=== PATIENT | female | born 1985 | race Caucasian/White ===

== ENCOUNTER 2017-11-04 13:54 | Emergency (ER) | payer OTHER ==
[~2017-11-04] VITALS: Ht 160 cm; Wt 68.0 kg
--- NOTE | 2017-11-04 15:47 | ED GENERAL ADULT ---
History of Present Illness General Chief Complaint: Abdominal Pain/Flank Pain Stated Complaint: UPPER ABD RADIATING TO THE FLANK X 1.5 HRS Source: patient Exam Limitations: no limitations Vital Signs & Intake/Output Vital Signs & Intake/Output Vital Signs Date Time Temp Pulse Resp B/P B/P Pulse O2 O2 Flow FiO2 Mean Ox Delivery Rate 11/04 2005 98.7 78 18 115/77 98 Room Air 11/04 1944 Room Air 11/04 1621 98.4 75 16 114/75 100 Room Air 11/04 1411 97.8 90 20 123/67 98 Room Air ED Intake and Output 11/05 0000 11/04 1200 Intake Total Output Total Balance Patient 150 lb Weight Weight Reported by Patient Measurement Method Allergies Coded Allergies: NO KNOWN ALLERGIES (11/08/10) Triage Note: PT BIBA TO TRIAGE FOR C/O SUDDEN ONSET OF UPPER ABD PAIN RADIATING TO BACK. PT WAS AT WORK AND FELT THIS PAIN THEN BECAME DIZZY AND NAUSEOUS. C/O DIARRHEA THIS AM AFTER TAKING PRUNE JUICE. DENIES VOMITING. STATES PAIN STARTED 15 MINUTES AFTER EATING SOME SNACKS. HAD SIMILAR EPISODE 2-3 MONTHS AGO. Triage Nurses Notes Reviewed? yes Onset: Abrupt Duration: hour(s): Timing: single episode today : No Patient currently breastfeeds: No HPI: 15 min after eating lunch pt experienced extreem pain in her abdomin that radiates to her back. Pt states she became pale, shaky, and nausa. Pt denies fever or urinary symptoms, does admit to diarrhea. She says she had a similar episode approximately 2 months ago. Past History Travel History Traveled to [place] past 21 day No Medical History Any Pertinent Medical History? see below for history Psychiatric: depression Surgical History Surgical History: appendectomy Psychosocial History Who do you live with Patient and family Services at Home None What is your primary language Afghan Tobacco Use: Quit >30 days ago ETOH Use: occasional use Illicit Drug Use: denies illicit drug use Family History Hx Contributory? No Review of Systems Review of Systems Constitutional: Reports: see HPI. Denies: fever. EENTM: Reports: no symptoms. Denies: blurred vision. Respiratory: Reports: no symptoms. Cardiovascular: Reports: no symptoms. Denies: chest pain, edema. GI: Reports: see HPI. Denies: abdominal pain, diarrhea, nausea. Genitourinary: Reports: no symptoms. Denies: dysuria, frequency, hematuria, urgency. Musculoskeletal: Reports: no symptoms. Skin: Reports: no symptoms. Neurological/Psychological: Reports: no symptoms. Hematologic/Endocrine: Reports: no symptoms. Immunologic/Allergic: Reports: no symptoms. Physical Exam Physical Exam General Appearance: well developed/nourished, no apparent distress, alert, awake , anxious Head: atraumatic, normal appearance Eyes: Bilateral: normal appearance, PERRL, EOMI. Ears, Nose, Throat: normal ENT inspection, hearing grossly normal Neck: normal inspection, supple, full range of motion Respiratory: normal breath sounds, lungs clear Cardiovascular: regular rate/rhythm Peripheral Pulses: 4+ radial (R), 4+ radial (L) Gastrointestinal: normal bowel sounds (epigastric -right upper quad.), tenderness Back: normal inspection, normal range of motion Extremities: normal inspection, normal range of motion, no edema Neurologic/Psych: no motor/sensory deficits, awake, alert, oriented x 3 Skin: intact, normal color, warm/dry Core Measures ACS in differential dx? No CVA/TIA Diagnosis: No Sepsis Present: No Sepsis Focused Exam Completed? No Progress Differential Diagnoses I considered the following diagnoses in my evaluation of the patient: [ Cholelithiasis, cholecystitis, peptic ulcer disease, gastritis] Plan of Care: Orders Procedure Date/time Status Add-on Test (ER Only) 11/04 1711 Active LYME TITRE 11/04 1548 Active ANAPLASMA PHAGOCYTOPHILUM DNA 11/04 1548 Active URINE 11/04 1500 Complete URINALYSIS 11/04 1500 Complete LIPASE 11/04 1500 Complete COMPREHENSIVE METABOLIC PANEL 11/04 1500 Complete CBC WITHOUT DIFFERENTIAL 11/04 1500 Complete Laboratory Tests 11/04/17 1622: Urine Color YEL, Urine Clarity HAZY H, Urine pH 8.0, Ur Specific [place] 1.015, Urine Protein NEG, Urine Ketones NEG, Urine Nitrite NEG, Urine Bilirubin NEG, Urine Urobilinogen 0.2, Ur Leukocyte Esterase LARGE H, Ur Microscopic SEDIMENT EXAMINED, Urine RBC FEW H, Urine WBC 5-10 H, Ur Epithelial Cells MOD H, Urine Bacteria MANY H, Urine Hemoglobin MOD H, Urine Glucose NEG, Urine Test NEGATIVE 11/04/17 1548: Lyme Disease Antibody Pending 11/04/17 1548: Anion Gap 14, Estimated GFR > 60, BUN/Creatinine Ratio 14.4, Glucose 109 H, Calcium 10.2, Total Bilirubin 0.8, AST 303 H, ALT 149 H, Alkaline Phosphatase 77, Total Protein 8.1, Albumin 4.7, Globulin 3.4, Albumin/Globulin Ratio 1.4, Lipase 118, CBC w Diff NO MAN DIFF REQ, RBC 4.63, MCV 90.1, MCH 30.4, MCHC 33.7, RDW 13.0, MPV 8.2, Gran % 82.9 H, Lymphocytes % 8.9 L, Monocytes % 6.8, Eosinophils % 0.8, Basophils % 0.6, Absolute Granulocytes 10.7 H, Absolute Lymphocytes 1.1 L, Absolute Monocytes 0.9 H, Absolute Eosinophils 0.1, Absolute Basophils 0.1, A.phagocytophil DNA PCR Pending Initial ED EKG: none Departure Departure Disposition: STILL A PATIENT Condition: Stable Clinical Impression Primary Impression: Cholelithiasis Referrals: Swift Santy KENDRICK (PCP/Family) Departure Forms: Customer Survey General Discharge Information Comments Ultrasound results shown below- PATIENT: NOÉ LYONS PRESENT AGE: 32 PATIENT ACCOUNT NO: [id number] : 86 LOCATION: [facility] ORDERING PHYSICIAN: Levar Escamilla DO SERVICE DATE: 11/04/17 EXAM TYPE: US - US-LIMITED ABDOMEN US ABDOMEN LIMITED CLINICAL INFORMATION: Right upper quadrant pain. Rule out cholecystitis. COMPARISON: Abdominal CT 02/10/2008. TECHNIQUE: Real-time imaging of the right upper quadrant abdominal viscera. FINDINGS: PANCREAS: Normal. LIVER: Normal. The liver demonstrates normal size, contour and echogenicity. No focal lesion or intrahepatic biliary duct dilatation. GALLBLADDER: The gallbladder is partially contracted. Multiple gallstones, the largest measuring 0.6 x 0.3 x 0.2 cm. Collateral thickness is not accurately measured given that the gallbladder is contracted. No definite pericholecystic fluid. COMMON BILE DUCT: Normal in caliber measuring 0.3 cm in diameter. RIGHT KIDNEY: Normal. No hydronephrosis. No renal calculi or focal parenchymal lesions. The kidney measures 10.1 cm in maximum dimension. FREE FLUID: None. IMPRESSION: Cholelithiasis. Limited assessment for acute cholecystitis as the patient was not NPO for this exam and the gallbladder is partially contracted. If there is high clinical suspicion for acute cholecystitis, a HIDA scan can be obtained. DICTATED BY: Levar Platt MD DATE/TIME DICTATED:11/04/171742 [employer]:BRYCE DATE/TIME TRANSCRIBED:11/04/171742 CONFIDENTIAL, DO NOT COPY WITHOUT APPROPRIATE AUTHORIZATION. <Electronically signed in Other Vendor System> SIGNED BY: Levar Platt MD 11/04/171749 The patient was reevaluated. Her abdominal pain resolved. She had no fever. No abdominal tenderness on reevaluation. I discussed the case with Dr. Salazar who is in agreement with the plan of care. The patient tolerated a meal in the emergency department without any further episode of nausea. I discussed with her that should she develop pain, vomiting or fever she would need to return to the emergency department. Shared decision-making was utilized in her care. They will follow up with surgery in the next 2 weeks or return to the emergency department should symptoms recur. Critical Care Note Critical Care Note Critical Care Time: non-applicable
[2017-11-04 16:08] LABS: ABSOLUTE BASOPHIL COUNT 0.1 /CUMM (0.0-0.2); ABSOLUTE EOSINOPHIL COUNT 0.1 /CUMM (0.0-0.7); ABSOLUTE GRANULOCYTE CT 10.7 /CUMM (1.4-6.5); ABSOLUTE LYMPH COUNT 1.1 /CUMM (1.2-3.4); ABSOLUTE MONOCYTE COUNT 0.9 /CUMM (0.10-0.60); BASOPHIL % 0.6 % (0.0-2.0); EOSINOPHIL % 0.8 % (0-5); GRANULOCYTE % 82.9 % (42.2-75.2); HEMATOCRIT 41.7 % (37-47); MEAN CORPUSCULAR HGB 30.4 PG (27.0-31.0); MEAN CORPUSCULAR HGB CONC 33.7 G/DL (33.0-37.0); MEAN CORPUSCULAR VOLUME 90.1 FL (81.0-99.0); MEAN PLATELET VOLUME 8.2 FL (7.4-10.4); PLATELET COUNT 302 /CUMM (130-400); RED BLOOD CELL CT 4.63 /CUMM (4.20-5.40); WHITE BLOOD CELL COUNT 12.9 /CUMM (4.8-10.8)
--- NOTE | 2017-11-04 17:50 | ULTRASOUND REPORT ---
US ABDOMEN LIMITED CLINICAL INFORMATION: Right upper quadrant pain. Rule out cholecystitis. COMPARISON: Abdominal CT 02/10/2008. TECHNIQUE: Real-time imaging of the right upper quadrant abdominal viscera. FINDINGS: PANCREAS: Normal. LIVER: Normal. The liver demonstrates normal size, contour and echogenicity. No focal lesion or intrahepatic biliary duct dilatation. GALLBLADDER: The gallbladder is partially contracted. Multiple gallstones, the largest measuring 0.6 x 0.3 x 0.2 cm. Collateral thickness is not accurately measured given that the gallbladder is contracted. No definite pericholecystic fluid. COMMON BILE DUCT: Normal in caliber measuring 0.3 cm in diameter. RIGHT KIDNEY: Normal. No hydronephrosis. No renal calculi or focal parenchymal lesions. The kidney measures 10.1 cm in maximum dimension. FREE FLUID: None. IMPRESSION: Cholelithiasis. Limited assessment for acute cholecystitis as the patient was not NPO for this exam and the gallbladder is partially contracted. If there is high clinical suspicion for acute cholecystitis, a HIDA scan can be obtained.
[2017-11-04 20:06] VITALS: BP 115/77
== END 2017-11-04 20:09 ==
LOC: ERH 13:54
PROVIDERS: Physician Assistant Medical
DX: K80.20 Calculus of gallbladder without cholecystitis without obstruction (principal)
CPT/HCPCS: 86618; 87798; 81001; 81025

== ENCOUNTER 2017-11-09 19:03 | Emergency (ER) | payer OTHER ==
[~2017-11-09] VITALS: Ht 160 cm; Wt 68.0 kg
[2017-11-09 19:24] VITALS: BP 109/75
== END 2017-11-09 19:34 | disposition admitted as inpatient to this hospital (09) ==
LOC: ERH 19:03
DX: R50.9 Fever, unspecified (principal); R51 Headache

== ENCOUNTER → 2017-11-25 | Day surgery (SDC) | payer OTHER ==
[~2017-11-25] VITALS: Ht 160 cm; Wt 68.0 kg
[~2017-11-25] MED LIST: NORCO 5-325 TA1 EACH PO; PERCOCET 5-3251 EACH PO
--- NOTE | 2017-11-25 15:46 | Operative Report ---
Operative/Inv Procedure Report Surgery Date: 11/25/17 Name of Procedure: Laparoscopic cholecystectomy Pre-Operative Diagnosis: Cholelithiasis/Cholecystitis Post-Operative Diagnosis: Same Estimated Blood Loss: less than 50ml Surgeon/Director Sales Support: Rinku Alfonso DO Anesthesia: general endotracheal tube IV Fluids: 1000 cc Drains: None Specimens: Gallbladder Complications: None Condition: Stable Operative Indication: This is a 32-year-old female presented to the office after a trip to the emergency room for abdominal pain. Patient underwent appropriate workup and was diagnosed with cholelithiasis/cholecystitis. The patient's pain improved and she was told to follow-up for an elective laprascopic cholecystectomy. A laparoscopic possible open cholecystectomy was discussed in detail. All risks including but not limited to bleeding, infection, bile leak, and injury to surrounding duct/bowel were discussed in detail. The patient understood everything and decided to proceed. Operative/Procedure Note Note: The patient was brought to the operating room and placed on the operating room table in supine position. Venodyne stockings were placed and adequate general endotracheal anesthesia was obtained. The patient was prepped and draped in standard surgical fashion. We began the procedure by making a 2 cm transverse incision in the infraumbilical crease. The incision was carried down to the fascia, once the fascia was clearly visualized it was picked up between 2 sury clamps. The fascia was divided in the midline and once we entered the peritoneum 2 stay 0 Vicryl sutures were placed on each side. A 12 mm blunt port was inserted and the abdominal cavity was insufflated to 15 mmHg. A 10 mm 30 laparoscope was introduced and upon initial examination no obvious gross pathology was seen. We did note a mildly distended gallbladder in the right upper quadrant. Accessory trocars were placed, all 5 mm, one in the epigastrium and 2 in the right upper quadrant (one in the midclavicular line and one in the anterior axillary line, both 2 fingerbreadths below the costal margin). The gallbladder was grasped with the lateralmost trocar and retracted up over the liver. Using the other 2 accessory trocars the infundibulum was grasped and the peritoneum was lysed using blunt dissection and using hook electrocautery. The cystic duct and cystic artery were visualized. The common bile duct was visualized and it was away from our area of dissection. The cystic duct and artery were skeletonized and divided between clips, 3 clips to stay and one clip on the gallbladder side for the duct and 2 clips to stay and one clip on the gallbladder side for the artery. The gallbladder was dissected off the liver bed using hook electrocautery maintaining hemostasis. Prior to completely removing the gallbladder off the liver bed we examined the area of dissection no obvious bile leak or bleeding was noted, the clips appeared to be in good position. The gallbladder was completely detached from the liver bed. We switched to a 5 mm laparoscope and a 10 mm Endobag was introduced through the umbilical trocar site. The gallbladder was placed in the bag and removed through the umbilicus. The abdomen was reinsufflated. We switched back to a 10 mm laparoscope and examined our area of dissection. No obvious bile leak or bleeding was noted. The right upper quadrant was irrigated until clear. All ports were removed under direct visualization, no obvious bleeding was noted. The umbilical trocar site was closed using 0 Vicryl suture. The skin was closed using 4-0 Monocryl. Steri-Strips and dressings were placed. The patient was successfully extubated and transferred to the recovery room in stable condition. The patient tolerated the procedure well with no complications. Findings: Thick gallbladder wall, small stones CC: Jamison KENDRICK,Santy Gilman
== END ==
LOC: STS 03:49
DX: K80.10 Calculus of gallbladder with chronic cholecystitis without obstruction (principal); Z87.891 Personal history of nicotine dependence
CPT/HCPCS: 81025; 88304; J0690; J2250; J3490